=== PATIENT | female | born 1965 | race African-American/Black ===

== ENCOUNTER 2025-05-24 16:52 | Emergency (ER) | payer OTHER ==
[2025-05-24 17:12] VITALS: BP 108/66; PULSE 83; RESP 17; TEMP 98.2; BMI 26.2
[2025-05-24] MEDS ORDERED: IBUPROFEN 400 MG TABLET (FP) PO ONE (19:52)
[2025-05-24] MEDS: IBUPROFEN 400 MG TABLET (FP) PO ONE (20:01)
== END 2025-05-24 20:01 | disposition home or self-care (01) ==
LOC: JER 16:52
DX: M79.675 Pain in left toe(s) (principal); M25.571 Pain in right ankle and joints of right foot; W22.8XXA Striking against or struck by other objects, initial encounter
CPT/HCPCS: 73610-TC-LT-FY; 73630-TC-LT; 99283-25